=== PATIENT | female | born 1995 | race Caucasian/White ===

== ENCOUNTER 2022-05-13 17:15 | Emergency (ER) | payer BC | END 2022-05-13 19:07 | disposition home or self-care (01) | LOC: MW.ED 17:15 | DX: S80.11XA Contusion of right lower leg, initial encounter (principal); Z88.1 Allergy status to other antibiotic agents; W18.09XA Striking against other object with subsequent fall, initial encounter | CPT/HCPCS: 99283 ==

== ENCOUNTER 2022-12-19 16:29 | Emergency (ER) | payer OTHER, BC ==
[2022-12-19 19:27] LABS: HEPATITIS C AB# 0.12 INDEX (<0.8)
== END 2022-12-19 18:44 | disposition home or self-care (01) ==
LOC: MW.ED 16:29
DX: Z77.21 Contact with and (suspected) exposure to potentially hazardous body fluids (principal); Z88.2 Allergy status to sulfonamides
CPT/HCPCS: 36415; 86803; 87340; 87389; 99283

== ENCOUNTER 2024-11-15 05:04 | Inpatient (IN) | payer BC ==
[2024-11-15] MEDS ORDERED: Sodium Chloride 0.9% 10 ML Syringe FLUSH PRN (05:08)
[2024-11-15] MEDS ORDERED: Sodium Chloride 0.9% 2.5 ML Syringe FLUSH PRN (05:08)
[2024-11-15] MEDS ORDERED: Sodium Chloride 0.9% 20 ML SDV IV PRN (05:08)
[2024-11-15] MEDS ORDERED: Oxytocin/0.9 % Sodium Chloride 30 UNIT/500 ML BAG IV SCH (05:15)
[2024-11-15] MEDS ORDERED: Lactated Ringers 1,000 ML IV SCH ×2 (05:15→09:00)
[2024-11-15] MEDS ORDERED: fentaNYL 50 MCG/ML SDV IVPUSH PRN (06:00)
[2024-11-15] MEDS ORDERED: diphenhydrAMINE 50 MG/ML SDV IVPUSH PRN ×2 (06:00→08:55)
[2024-11-15] MEDS ORDERED: Albuterol 0.083% 2.5 MG/3 ML Neb Soln NEB PRN (06:00)
[2024-11-15] MEDS ORDERED: Metoclopramide 10 MG/2 ML SDV IVPUSH PRN (06:00)
[2024-11-15] MEDS ORDERED: Nalbuphine 10 MG/1 ML Vial IVPUSH PRN (06:00)
[2024-11-15] MEDS ORDERED: Ondansetron 4 MG/2 ML SDV IVPUSH PRN (06:00)
[2024-11-15] MEDS ORDERED: Acetaminophen/oxyCODONE 325-5 MG Tab PO PRN ×3 (06:00→08:55)
[2024-11-15] MEDS ORDERED: fentaNYL 100 MCG/2 ML SDV IVPUSH PRN (06:00)
[2024-11-15] MEDS ORDERED: HYDROmorphone 1 MG/ML Syringe IVPUSH PRN (06:00)
[2024-11-15] MEDS ORDERED: Morphine 2 MG/ML SYRINGE IVPUSH PRN (06:00)
[2024-11-15] MEDS ORDERED: Naloxone 0.4 MG/ML SDV IVPUSH PRN ×2 (06:00→08:55)
[2024-11-15 06:37] LABS: HEMATOCRIT 33.3 % (37.0-47.0); HEMOGLOBIN 11.4 g/dL (12.0-16.0); MEAN CORPUSCULAR HEMOGLOBIN 29.7 pg (28.0-32.0); MEAN CORPUSCULAR HGB CONC 34.2 g/dL (32.0-36.0); MEAN CORPUSCULAR VOLUME 86.7 fL (83.0-99.0); MEAN PLATELET VOLUME 12.3 fL (9.4-12.3); PLATELET COUNT,PLT 131 K/uL (150-400); RED BLOOD CELL COUNT 3.84 M/uL (4.10-5.30); WHITE BLOOD CELL COUNT,WBC 5.52 K/uL (3.9-11.3)
[2024-11-15] MEDS ORDERED: Morphine PF 10 MG/10 ML SDV ONE (07:08)
[2024-11-15] MEDS ORDERED: fentaNYL 100 MCG/2 ML SDV ONE (07:08)
[2024-11-15] MEDS ORDERED: Phenylephrine 1% 10 MG/ML SDV ONE (07:08)
[2024-11-15] MEDS ORDERED: Ondansetron 4 MG/2 ML SDV ONE (07:08)
[2024-11-15] MEDS ORDERED: Dexamethasone 4 MG/ML 5 ML MDV ONE (07:08)
[2024-11-15] MEDS ORDERED: ceFAZolin 2 GM Vial ONE (07:08)
[2024-11-15] MEDS ORDERED: dexmedeTOMIDine HCl 200 MCG/2 ML SDV ONE (07:08)
[2024-11-15] MEDS ORDERED: Ropivacaine 0.5% 5 MG/ML 30 ML SDV ONE (07:08)
[2024-11-15] MEDS ORDERED: ePHEDrine 50 MG/ML SDV ONE (07:09)
[2024-11-15] MEDS ORDERED: Oxytocin 10 Units/1 ML SDV ONE ×2 (07:09→07:10)
[2024-11-15] MEDS ORDERED: droPERidol 5 MG/2 ML SDV ONE (08:20)
[2024-11-15] MEDS ORDERED: Lanolin 100% Cream 7 GM Tube TOP PRN (08:55)
[2024-11-15] MEDS ORDERED: Bisacodyl 10 MG Supp RECTAL PRN (08:55)
[2024-11-15] MEDS ORDERED: Methylergonovine 0.2 MG/1 ML Amp IM PRN (08:55)
[2024-11-15] MEDS ORDERED: Misoprostol 200 MCG Tab RECTAL PRN (08:55)
[2024-11-15] MEDS ORDERED: Oxytocin 10 Units/1 ML SDV IM PRN (08:55)
[2024-11-15 09:05] LABS: PH,UMBILICAL ARTERIAL 7.23 (7.18-7.38); PH,UMBILICAL VENOUS 7.37 (7.25-7.45)
[2024-11-15] MEDS: Ketorolac 30 MG/ML SDV IVPUSH SCH (09:15)
[2024-11-15] MEDS: Docusate Sodium 100 MG Cap PO SCH (10:09)
[2024-11-15] MEDS: Phenylephrine HCl In 0.9% NaCl 1 MG/10 ML Syringe IVPUSH PRN (11:10)
[2024-11-15] MEDS: Simethicone 80 MG Tab.Chew PO SCH (11:55)
[2024-11-15] MEDS: Ondansetron 4 MG/2 ML SDV IVPUSH PRN ×2 (11:56→11:57)
[2024-11-16 05:42] LABS: HEMATOCRIT 25.3 % (37.0-47.0); HEMOGLOBIN 8.4 g/dL (12.0-16.0)
[2024-11-16] MEDS: Citric Acid/Sodium Citrate Solution 30 ML Cup PO ONE (07:45)
[2024-11-16] MEDS: ceFAZolin 2 GM in Water For Injection, Sterile 20 ML IVPUSH ONE (07:45)
[2024-11-16] MEDS: ePHEDrine 50 MG/ML SDV IM ONE (07:46)
[2024-11-16] MEDS: Acetaminophen 500 MG Tab PO PRN (11:56)
[2024-11-16] MEDS: Ibuprofen 800 MG Tab PO PRN (15:28)
== END 2024-11-17 12:12 | disposition home or self-care (01) | DRG 540 ==
LOC: MW.OB 05:04
PROVIDERS: ADMIT Obstetrics & Gynecology; ATTEND Obstetrics & Gynecology
PROC: 10D00Z1 Extraction of Products of Conception, Low, Open Approach (ICD-10-PCS; principal; 2024-11-15 08:00)
DX: O32.1XX0 Maternal care for breech presentation, not applicable or unspecified (principal); Z3A.39 39 weeks gestation of pregnancy; Z37.0 Single live birth; Z88.8 Allergy status to other drugs, medicaments and biological substances; Z98.890 Other specified postprocedural states
CPT/HCPCS: 01961; 36415; 64488; 82803; 85014; 85018; 85027; 86592; 86850; 86900; 86901; A9270-GY; J0690; J1100; J1790; J1885; J2274; J2371; J2405; J2590; J2795; J3010; J3490